=== PATIENT | female | born 1960 | race Caucasian/White ===

== ENCOUNTER 2023-10-28 20:51 | Inpatient (IN) | payer OTHER, SELFPAY ==
[2023-10-28] VITALS (16 sets, daily range): BP systolic 110–156; BP diastolic 61–114; BMI 38.5; BMI 38.8
[2023-10-28 15:06] LABS: % Basophils 0.8 % (0-2); % Eosinophils 1.8 % (0-6); % Immature Granulocytes 0.1 % (0-0.5); % Lymphocytes 29.1 % (20.5-51.1); % Monocytes 7.9 % (1.7-9.3); % Neutrophils 60.3 % (42.2-75.2); Absolute Basophils 0.1 10^3/uL (0-0.2); Absolute Eosinophils 0.2 10^3/uL (0-0.7); Absolute Lymphocytes 2.5 10^3/uL (1.2-3.4); Absolute Monocytes 0.7 10^3/uL (0.1-0.6); Absolute Neutrophils 5.2 10^3/uL (1.4-6.5); Hematocrit 38.1 % (37.0-47.0); Hemoglobin 13.2 g/dL (12.0-16.0); Mean Corp Hgb Conc. 34.6 g/dL (33.0-37.0); Mean Corpuscular Hgb 32.2 pg (27.0-31.0); Mean Corpuscular Volume 92.9 fL (81.0-99.0); Mean Platelet Volume 11.1 fL (7.4-10.4); Nucleated Red Blood Cells % 0 %; Platelet Count 258 10^3/uL (130-400); White Blood Cell Count 8.6 10^3/uL (4.8-10.8)
--- NOTE | 2023-10-28 15:17 | ED.GENMED ---
History of Present Illness
General
Chief Complaint: Chest Pain
Source: patient
Exam Limitations: none
Time Seen by Provider: 10/28/23 15:04
History of Present Illness
History of Present Illness:
See MDM
Past History
Past History
ED Past Medical History: None
ED Past Surgical History: None
Social History
Tobacco: Non-smoker
Alcohol: None
Phy Exam
Physical Exam
Physical Exam:
See MDM
Scores
[id number] Score for Afib Stroke Risk
Age in Years (65=0, 65-74=1, >/=75=2): <65
Sex (Female=+1): Female
Congestive Heart Failure History (Yes=+1): No
Hypertension History (Yes=+1): No
Stroke/TIA/Thromboembolism History (Yes=+2): No
Vascular Disease History (Yes=+1): No
Diabetes Mellitus (Yes=+1): No
Score: 1
Anticoagulation Recommendations: Consider anticoagulation (as validated in nonvalvular fib)
Heart Score for Chest Pain Patients
STEMI patient?: No
History: Slightly or Non-Suspicious
ECG: Normal
Age: >45 - <65 years
Risk Factors: 1 or 2 Risk Factors
Troponin: </= Normal Limit
Heart Score for Chest Pain Patients: 2
Heart Score Risk: 2.5% MACE over next 6 weeks
Course
Orders/Labs/Results
Orders:
Orders
10/28/23 14:20
ECG [Electrocardiogram (*1)] Urgent
Reason for Study: Chest Pain
EKG- Treatment ONCE
10/28/23 14:57
CMP [Comprehensive Metabolic Panel] Urgent
Complete Blood Count/With Diff Urgent
TSH Reflex To Free T4 Urgent
Troponin I Urgent
10/28/23 15:17
0.9% Sodium Chloride 1000 ml [Nss] 1,000 ml IV BOLUS
Diltiazem HCl [Cardizem] 20 mg IV NOW STA
10/28/23 16:23
Diltiazem 125 mg/125 ml Nss [Cardizem] 125 mg in 125 ml IV NOW
Initial dose in mg/hr, then titrate:: 5
Titrate to keep:: Heart rate 80-100 bpm
Titrate by mg/hr:: 5 mg/hr
Frequency of titrations (minutes):: 15
Maximum dose in mg/hr:: 15
Diltiazem HCl [Cardizem] 20 mg IV NOW STA
Abnormal Lab Results
10/28/23
14:57
RBC 4.10 L 10^6/uL
(4.20-5.40)
MCH 32.2 H pg
(27.0-31.0)
MPV 11.1 H fL
(7.4-10.4)
Absolute Monos (auto) 0.7 H 10^3/uL
(0.1-0.6)
Chloride 109 H mmol/L
(98-107)
Total Bilirubin 1.5 H mg/dl
(0.2-1.3)
ALT 56 H U/L
(0-35)
10/28/23 14:57
10/28/23 14:57
Vital Signs
Initial and Last Documented VS:
Initial Vital Signs
Temp Pulse Resp Pulse Ox
98.6 F 137 20 94
10/28/23 14:28 10/28/23 14:28 10/28/23 14:28 10/28/23 14:28
Last Documented Vital Signs
Temp Pulse Resp BP Pulse Ox
98.6 F 119 20 123/74 94
10/28/23 14:28 10/28/23 18:15 10/28/23 18:15 10/28/23 18:00 10/28/23 18:15
MDM/Problems Addressed
Differential Diagnosis Includes:
HPI and MDM Narrative:
63-year-old female presenting for shortness of breath for a few weeks. She went to her PCP office and was diagnosed with A-fib. Patient had a cardiology evaluation several years ago. She was told that she has an intermittent arrhythmia. Patient
is unsure if this was A-fib or not. Regardless, she takes no medicines and is not on blood thinners.
On exam, patient is in A-fib with RVR. At rest, she is comfortable but she complains of shortness of breath when she exerts herself. Will give Cardizem and discuss case with cardiology
Physical exam
General: Well appearing and non-toxic
HEENT: protecting airway
Neck: appears supple
CV: No evidence of cyanosis. Tachycardic and irregular
Resp: No accessory muscle use. Lungs clear
Abd: Non-distended
Extremities: No deformities
Neuro: alert
Psych: Normal affect
Skin: Intact
Problems Addressed including Acute and Chronic Conditions affecting care:
1. New onset A-fib
Acuity: acute
Prognosis: unstable
Details: Will give IV Cardizem and attempt to chemically cardiovert. Will give IV fluids and obtain basic blood work looking for lab abnormalities. She is not an electrical cardioversion candidate based on duration of symptoms while not being on a
blood thinner
Updates
After prolonged observation on Cardizem drip, patient remains in A-fib with RVR. Will admit for further workup
Differential Diagnosis (but not limited to): New onset A-fib, hyperthyroidism, ACS
Testing considered:
Drug therapy (if applicable): OTC meds, please see d/c instruction regarding Rx drugs
Amount and/or Complexity of Data Reviewed
Clinical info obtained from: Patient
External data reviewed: N/A
Labs I independently reviewed (but not limited to): White blood cell count normal
Radiology: N/A
Pulse Ox: not hypoxic
EKG independently reviewed: A-fib with RVR, normal axis, no STEMI
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
Critical Care: The high probability of a clinically significant, sudden or life threatening deterioration of the cardiovascular system(s) required my full and direct attention, intervention and personal management. The aggregate critical care time
was 31 minutes. This time is in addition to time spent performing reported procedures but includes the following:
[x] Data Review and interpretation
[x] Patient assessment and monitoring of vital signs
[x] Documentation
[x] Medication orders and management
Risk of Complication:
Social Determinants of health: Good social support
Discussed with other providers: Hospitalist
Escalation of Care includes Admit/Obs: Given persistent A-fib despite being on Cardizem drip, will admit
Occasional wrong word or 'sound a like' substitutions may have occurred due to the inherent limitations of voice recognition software. Read the chart carefully and recognize, using context, where substitutions have occurred.
*Critical Care Note
Total Time (30-74mins, 75-104mins- exclusive of procedures): 31 min
ED Attending Note
-
Portions of this chart may have been created with voice recognition software.� Occasional wrong word or��sound alike� substitutions may have occurred due to the inherent limitations of voice recognition software.
Discharge Plan
Departure
Patient Disposition: Admit
Date of Disposition: 10/28/23
Time of Disposition: 19:17
Admit to: Telemetry
Presentation/result/management discussed w/ accepting MD/DO: Hospitalist
Discharge Problem:
Atrial fibrillation, new onset
Prescriptions:
No Action
Theragen Tablet
1 tab PO DAILY
aspirin 81 mg Tablet,Delayed Release (Dr/Ec)
81 mg PO DAILY
zolmitriptan [Zomig] 5 mg Tablet
0 mg PO .COMPLEX
Rx Instructions:
take 1 tab at onset of headache; if no relief, may repeat 1 tab after at least 2 hrs; max = 2 tabs/24 hrs
calcium carbonate [Calcium 500] 500 mg calcium (1,250 mg) Tablet
500 mg PO DAILY
ibuprofen [Advil] 200 mg Tablet
200 mg PO Q6HPRN PRN (Reason: MILD PAIN)
coQ10 (ubiquinol) 100 mg Capsule
100 mg PO DAILY
CholestOff Complete 300-100 mg Capsule
1 cap PO DAILY
Referrals:
Neelima Hernandez CRNP [Family Provider] -
Interventions
Interventions:
*Risk Screen - Suicide Last Done: 10/28/23 14:41
*General Assessment Last Done: 10/28/23 14:41
*Neglect/Abuse Screening Last Done: 10/28/23 14:41
ED- Fall Risk Assessment Last Done: 10/28/23 14:41
*ED COVID-19 Vaccine History Last Done: 10/28/23 14:28
ED- Cardiac Assessment Last Done: 10/28/23 14:41
Discharge Date and Time
Print Language: SETSWANA
[2023-10-28 15:18] LABS: ALT (SGPT) 56 U/L (0-35); AST (SGOT) 35 U/L (14-36); Albumin 4.3 g/dl (3.5-5.0); Alkaline Phosphatase 87 U/L (38-126); Blood Urea Nitrogen 16 mg/dl (7-17); Carbon Dioxide 23 mmol/L (22-30); Chloride 109 mmol/L (98-107); Estimated Creatinine Clearance 118 ml/min; Glucose 93 mg/dl (70-99); Potassium 4.5 mmol/L (3.5-5.1); Sodium 140 mmol/L (135-145); Total Bilirubin 1.5 mg/dl (0.2-1.3); Total Protein 6.8 g/dl (6.3-8.2); eGFR > 60.00
[2023-10-28 15:30] LABS: Troponin I < 0.012 ng/ml
[2023-10-28] MEDS: NSS 1000 IV (15:47)
[2023-10-28 15:48] LABS: TSH Reflex To Free T4 2.07 uIU/ml (0.47-4.68)
[2023-10-28] MEDS: CARDIZEM 20 MG IV ×2 (15:48→16:49)
[2023-10-28] MEDS: CARDIZEM 125 IV (16:53)
--- NOTE | 2023-10-28 20:18 | HPS.HSE ---
Family Physician
-
Family Physician: SHAHRZAD Islas
Chief Complaint
-
Chest Tightness / SOB
History of Present Illness
Patient is a 63y F with PMH significant for obesity and borderline hypertension who presents to ED complaining of chest tightness and SOB. Patient states that her symptoms have been present for about one week and have been gradually progressive
in that time. She complains of dyspnea with activity that has steadily worsened over the past week (i.e. occurs with less and less exertion). She complains of chest 'tightness' and inability to take a deep breath. Her has appreciated some
wheezing in her sleep that seems to improve / resolve with upright positioning.
Patient notes some intermittent and brief palpitations.
She notes similar symptoms that occurred about one year ago. She was seen at [facility] ED at that time and discharged for outpatient follow-up.
She was seen by Cardiology (Dr. Irvin Potter) in [place], [place] and was noted at that time to have 'arrhythmia'.
She wore a Holter monitor that showed an arrhythmia which was not coincident with any reported symptoms from the patient.
Patient states that she was placed on no prescription medications; however, 'ablation' was discussed. Patient admits that she failed to follow-up after this initial evaluation.
Medical History
Past Medical History
Past Medical History: Reports Other
Additional Past Medical History:
Obesity
Migraine Headaches
Borderline Hypertension
Borderline Dyslipidemia
Past Surgical History: Reports Other
Additional Past Surgical History:
DANNI
Social History
Tobacco: Non-smoker
Alcohol: Occasional
Drug: None
Personal:
Family History
Family History: Other (Father: [place] (58yo), CVA)
Allergies / Home Medications
Allergies reflects when Allergies were last updated in [facility].
Home Medications with original date entered in [facility]
Allergy/Medication List:
Allergies
Allergy/AdvReac Type Severity Reaction Status Date / Time
No Known Allergies Allergy Verified 10/28/23 14:32
Home Medications
aspirin 81 mg tablet,delayed release 81 mg PO DAILY 10/28/23
calcium carbonate 500 mg PO DAILY 10/28/23
coQ10 (ubiquinol) 100 mg capsule 100 mg PO DAILY 10/28/23
ibuprofen 200 mg tablet (Advil) 200 mg PO Q6HPRN PRN MILD PAIN 10/28/23
phytosterol 300 mg-pantethine 100 mg capsule (CholestOff Complete) 1 cap PO DAILY 10/28/23
therapeutic multivitamin 1 tab PO DAILY 10/28/23
zolmitriptan 5 mg tablet (Zomig) 0 mg PO .COMPLEX 10/28/23
Review of Systems
-
History Source: Patient
A 12 point ROS was completed and negative except as noted: Yes
Constitutional: Reports Fatigue; Denies Fever or Chills
EENT: Denies Sore Throat
Respiratory: Reports Trouble Breathing; Denies Cough or Hemoptysis
Cardiac: Reports Chest Pain; Denies Diaphoresis, Palpitations or Syncope
Abdomen/GI: Denies Abdominal Pain, Nausea, Vomiting or Diarrhea
: Denies Dysuria, Frequency or Flank Pain
Musculoskeletal: Denies Edema
Neurological: Reports Headache; Denies Dizzy
Psych: Denies Depression or Anxiety
Physical Exam
Vital Signs
Vital Signs
Temp Pulse Resp BP Pulse Ox
98.6 F 112 17 119/88 93
10/28/23 14:28 10/28/23 19:15 10/28/23 19:15 10/28/23 19:00 10/28/23 19:15
Physical Exam
General: Other (63y F in no acute distress.)
HEENT: Moist mucous membranes and Other (Thick neck.)
Respiratory: Other (Few bibasilar rales. No wheeze / rhonchi.)
Cardiac: S1/S2, Irregular Rhythm and Tachycardia; No Murmur
GI: Soft, Non Tender, Non Distended, Normal Bowel Sounds and Other (Obese.)
Musculoskeletal: No Clubbing, No Cyanosis and No Edema
Neuro: AO x 3
Laboratory Results
-
10/28/23 14:57
10/28/23 14:57
Laboratory Results
Total Bilirubin 1.5 mg/dl (0.2-1.3) H 10/28/23 14:57
AST 35 U/L (14-36) 10/28/23 14:57
ALT 56 U/L (0-35) H 10/28/23 14:57
Alkaline Phosphatase 87 U/L (38-126) 10/28/23 14:57
Troponin I < 0.012 ng/ml 10/28/23 14:57
Impression/Plan
-
A/P: Patient is a 63y F with PMH significant for obesity and migraine headaches who presents to ED complaining of chest tightness and GEORGE.
Atrial Fibrillation - Likely Paroxysmal - with Rapid Ventricular Rate
- Admit for further evaluation and treatment.
- Suspect that patient has had atrial fibrillation for at least on year.
- Will send for records from her prior outpatient Italian Tutor.
- Continue IV diltiazem and titrate as needed for rate control.
- Begin Eliquis for stroke risk reduction (though CHADs-VAsc2 is only 1).
- Check Echo.
- Cardiology evaluation in the AM to review other options for treatment.
Obesity due to excess calories
- Affects all aspects of care.
- Encourage health diet and increased activity with goal of weight loss.
DVT Prophylaxis: Eliquis
Code Status: Full
[2023-10-28 22:53] LABS: Troponin I < 0.012 ng/ml
[2023-10-28] MEDS: ELIQUIS 5 MG PO (23:11)
[2023-10-29] VITALS (11 sets, daily range): BP systolic 92–127; BP diastolic 57–91; BMI 38.8
--- NOTE | 2023-10-29 00:32 | PTCARENOTE ---
Received patient from ED. Admitted with SOB and chest tightness. Cardizem drip at 15ml/hr running in left forearm. Telemetry A-Fib with RVR. Rates 120s-140s. Denies chest discomfort. Admission history taken and recorded. Call corbin within reach.
[2023-10-29] MEDS: CARDIZEM 125 IV (04:29)
[2023-10-29] MEDS: TYLENOL 650 MG PO ×2 (04:56→10:01)
--- NOTE | 2023-10-29 05:19 | PTCARENOTE ---
Patient continues in uncontrolled A-Fib. HR remains 110 at rest. Cardizem drip continues at 15mL/hr. Call corbin within reach.
[2023-10-29 05:27] LABS: Hematocrit 36.7 % (37.0-47.0); Hemoglobin 12.8 g/dL (12.0-16.0); Mean Corp Hgb Conc. 34.9 g/dL (33.0-37.0); Mean Corpuscular Hgb 32.3 pg (27.0-31.0); Mean Corpuscular Volume 92.7 fL (81.0-99.0); Mean Platelet Volume 11.6 fL (7.4-10.4); Platelet Count 246 10^3/uL (130-400); Red Blood Cell Count 3.96 10^6/uL (4.20-5.40); Red Cell Dist. Width 13.2 % (11.5-14.5); White Blood Cell Count 8.8 10^3/uL (4.8-10.8)
[2023-10-29 05:49] LABS: Blood Urea Nitrogen 14 mg/dl (7-17); Calcium 9.4 mg/dl (8.4-10.2); Carbon Dioxide 23 mmol/L (22-30); Chloride 108 mmol/L (98-107); Estimated Creatinine Clearance 116 ml/min; Glucose 91 mg/dl (70-99); HDL Cholesterol 42 mg/dl; LDL Cholesterol, Calculated 132 mg/dl; Sodium 139 mmol/L (135-145); Total Cholesterol 196 mg/dl (50-199); Triglyceride 114 mg/dl (10-149); Very Low Density Lipoprotein 22 mg/dl (0-30); eGFR > 60.00
[2023-10-29 06:00] LABS: Troponin I < 0.012 ng/ml
--- NOTE | 2023-10-29 08:03 | W.PN.HOSP.TC ---
Today's Communication/Plan
-
Lopressor and wean off Cardizem, chest XR
Assessment / Plan
Assessment / Plan
63yo F with PMHx of migraine came witbhn c/o of chronic worsening of SOB over past year. Was diagnosed with A.fib, apparently known from before. Admitted for Afib with RVR planned for CV
A/P:
#Dyspnea 2/2 most likely unspecified CHF 2/2 AFIb now with RVR (unknown duration)
Cardizem drip and switch to BB as tolerated
Echo
Telemetry
TSH WNL
Cardio consult: plan for FROY with CV
Chest XR
Started ELiquis
#Mild bilirubinemia
#Mild ALT elevation
no abd symptoms
follow LFT
check direct bili and LDH
#HLD
low fat diet
consider statin, however would defer to PCP in view of minimal but LFT abnormalities
DVT ppx on Eliquis
Full code
I have spent at least 56min reviewing chart, test results, communication with consuoltants and direct patient care
Anticipated Discharge: > 48 hours
Subjective/Interval History
-
Date of Service: October 29, 2023
Objective Data
-
Labs:
Laboratory Results
10/29/23
04:52
WBC 8.8
Hgb 12.8
Hct 36.7 L
Plt Count 246
Sodium 139
Potassium 4.0
Chloride 108 H
Carbon Dioxide 23
BUN 14
Creatinine 0.7
Glucose 91
Calcium 9.4
Vital Signs:
Vital Signs
Temp Pulse Resp BP Pulse Ox
97.8 F 132 18 121/66 94
10/29/23 07:15 10/29/23 07:15 10/29/23 07:15 10/29/23 07:14 10/29/23 07:15
Review of Systems
-
History Source: Patient
Respiratory: Reports Trouble Breathing
Physical Exam
-
General: Well Developed and No Apparent Distress
HEENT: Normocephalic
Respiratory: Crackles
Cardiac: Irregular Rhythm; Negative Murmur
GI: Soft, Nontender and Nondistended
Musculoskeletal: No Clubbing, No Cyanosis and No Edema
Skin: Warm
Neuro: Awake, Alert, Oriented and AO x 3
Psych: Calm
--- NOTE | 2023-10-29 08:10 | CON.CAR ---
Addendum entered and electronically signed by Scottie Neville MD 10/29/23 08:25:
Also sleep study has been considered in the past and she does snore. Sleep apnea is highly associated with A-fib and may consider outpatient sleep study
Addendum entered and electronically signed by Scottie Neville MD 10/29/23 08:24:
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 Patient had echocardiogram and stress test by her report in September 2022. If chest x-ray unremarkable consider CAT scan of chest to exclude pulmonary embolism with recent long
car trip.
Original Note:
Consultation
Consultation Request
Date/Time Consultation Requested: 10/28/2023 22: 00
Date/Time Consultation Performed: 10/29/2023 7: 45
Requesting Provider: Riky
Performing Provider: Kelin
Reason for Consultation: Atrial fibrillation
Medical History
-
Chief Complaint: Chest pains and shortness of breath
History of Present Illness:
Radha has a history of atrial fibrillation and was not anticoagulated due to low CHADS2 score, hypercholesterolemia, elevated blood pressure. She saw cardiology in September 2022 in [place], [place] (Dr. Irvin Potter). She reports a normal
stress test and echocardiogram at that time. She is active around the house but does not exercise. She had taken a road trip to [place] in early October. She has had developed chest tightness and shortness of breath for the past 1 to 2 weeks.
She has had a nonproductive cough. She broke out in sweats at times and is very short of breath with any type of exertion. She also has been noted to have a wheeze by her partner. She denies any palpitations, edema, weight gain. She was seen by
primary found to be in A-fib and sent to the ER and is in bed.
Past Medical History
Past Medical History: Other (History of migraines, anxiety, lipomas)
Past Surgical History: Gynecological (Total abdominal hysterectomy)
Social History
Tobacco: Non-Smoker
Alcohol: Occasional
Drug: None
Personal:
Living: With Family
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
Family History
Family History: Other (Father had heart attack at age 58, mother has some type of elevated heart rate and is 77)
Allergies / Home Medications
Allergy/AdvReac Type Severity Reaction Status Date / Time
No Known Allergies Allergy Verified 10/28/23 14:32
�Medication �Instructions �Recorded �Confirmed �Type
alprazolam 0.25 mg PO PRN Anxiety 10/28/23 History
aspirin 81 mg tablet,delayed 81 mg PO DAILY 10/28/23 10/28/23 History
release
calcium carbonate 500 mg PO DAILY 10/28/23 10/28/23 History
coQ10 (ubiquinol) 100 mg capsule 100 mg PO DAILY 10/28/23 10/28/23 History
ibuprofen 200 mg tablet (Advil) 200 mg PO Q6HPRN PRN MILD PAIN 10/28/23 10/28/23 History
phytosterol 300 mg-pantethine 100 1 cap PO DAILY 10/28/23 10/28/23 History
mg capsule (CholestOff Complete)
therapeutic multivitamin 1 tab PO DAILY 10/28/23 10/28/23 History
zolmitriptan 5 mg tablet (Zomig) 0 mg PO .COMPLEX 10/28/23 10/28/23 History
Review of Systems
-
History Source: Patient
All other systems: Negative unless noted
Constitutional: No Symptoms
EENT: No Symptoms
Respiratory: Cough and Trouble Breathing
Cardiac: Chest Pain
Abdomen/GI: No Symptoms
: No Symptoms
Musculoskeletal: No Symptoms
Skin: No Symptoms
Neurological: No Symptoms
Endocrine: No Symptoms
Hematologic/Lymphatic: No Symptoms
Physical Exam
Vital Signs
Temp Pulse Resp BP Pulse Ox
97.8 F 132 18 121/66 94
10/29/23 07:15 10/29/23 07:15 10/29/23 07:15 10/29/23 07:14 10/29/23 07:15
Lab Results
10/29/23 04:52
10/29/23 04:52
Troponin I Cancelled 10/29/23 09:41
General: Well developed, well nourished in NAD.
Neck: Supple, no JVD, HJR, carotids +2 B/L, no bruits bilaterally.
Heart: Non displaced PMI, irregular, no murmurs, No S3, S4, no rubs.
Lungs: Scattered rhonchi at the bases
Abdomen: Normal bowel sounds, soft, non-tender, non-distended.
Extremities: No clubbing, cyanosis or edema bilaterally.
Neuro: Grossly nonfocal, awake, alert and oriented x3.
Impression / Plan
-
Impression:
CHF
Chest pain with negative troponin
Rapid atrial fibrillation with history of A-fib since September 2022 and not anticoagulated due to low CHADS2 score
Hypercholesterolemia
History of elevated blood pressure
History of migraines
Anxiety disorder
Plan:
She presents with rapid A-fib and signs and symptoms of CHF with nonproductive cough and wheezing and crackles on examination
Will check chest x-ray and proBNP
Will diurese with IV Lasix
Continue to attempt rate control with the addition of Lopressor and continue Cardizem
Start Eliquis and case management consult to assess cost
Arrange for FROY/cardioversion on 10/31/2023
Discussed with primary service in detail
Data Reviewed
-
EKG: Tracing Personally Visualized and interpreted
Medical Tests (Nuc Med, Echo etc): Report Reviewed by me
Labs: Labs Reviewed by me
Old Records: Reviewed
[2023-10-29] MEDS: ASPIR LOW (ENTERIC COATED) 81 MG PO (08:23)
[2023-10-29] MEDS: ELIQUIS 5 MG PO ×2 (08:26→19:42)
[2023-10-29] MEDS: LOPRESSOR 50 MG PO ×2 (08:26→19:42)
[2023-10-29 08:49] LABS: Direct Bilirubin 0.2 mg/dl (0.0-0.4); LDH 199 U/L (120-246)
[2023-10-29] MEDS: LASIX 40 MG IV ×2 (09:18→15:40)
--- NOTE | 2023-10-29 18:31 | PTCARENOTE ---
Pt remains in atrial fib at a rate @90-140 with activity. Diltiazem infusion DC'd for SBP low 90's, pt started on metoprolol. Pt c/o mild headache relieved with tylenol. Pt had a peripheral U/S, CT scan of chest and CXR done today. Pt diuresing well
after lasix, she denies SOB.
--- NOTE | 2023-10-29 21:39 | PTCARENOTE ---
Pt received start of shift, HR afib. Pt OOB in chair for dinner. Reinforced w/ pt purpose of eliquis and metoprolol as well as what is afib. Pt states understanding, no questions at this time. Pt denies any CP, SOB, or lightheadedness/dizziness.
Informed to notify RN if any changes, call corbin within reach.
[2023-10-30] VITALS (8 sets, daily range): BP systolic 100–127; BP diastolic 64–89; BMI 38.5
[2023-10-30 02:33] LABS: % Basophils 0.8 % (0-2); % Eosinophils 2.8 % (0-6); % Immature Granulocytes 0.1 % (0-0.5); % Lymphocytes 34.9 % (20.5-51.1); % Monocytes 8.5 % (1.7-9.3); % Neutrophils 52.9 % (42.2-75.2); Absolute Basophils 0.1 10^3/uL (0-0.2); Absolute Eosinophils 0.2 10^3/uL (0-0.7); Absolute Lymphocytes 2.8 10^3/uL (1.2-3.4); Absolute Monocytes 0.7 10^3/uL (0.1-0.6); Absolute Neutrophils 4.2 10^3/uL (1.4-6.5); Hematocrit 36.7 % (37.0-47.0); Mean Corp Hgb Conc. 35.4 g/dL (33.0-37.0); Mean Corpuscular Hgb 32.7 pg (27.0-31.0); Mean Corpuscular Volume 92.4 fL (81.0-99.0); Mean Platelet Volume 11.3 fL (7.4-10.4); Nucleated Red Blood Cells % 0 %; Platelet Count 230 10^3/uL (130-400); Red Blood Cell Count 3.97 10^6/uL (4.20-5.40); Red Cell Dist. Width 13.2 % (11.5-14.5); White Blood Cell Count 7.9 10^3/uL (4.8-10.8)
[2023-10-30 02:48] LABS: ALT (SGPT) 68 U/L (0-35); AST (SGOT) 35 U/L (14-36); Albumin 3.8 g/dl (3.5-5.0); Alkaline Phosphatase 77 U/L (38-126); Blood Urea Nitrogen 17 mg/dl (7-17); Calcium 9.3 mg/dl (8.4-10.2); Carbon Dioxide 28 mmol/L (22-30); Chloride 107 mmol/L (98-107); Estimated Creatinine Clearance 101 ml/min; Glucose 94 mg/dl (70-99); Potassium 4.1 mmol/L (3.5-5.1); Sodium 140 mmol/L (135-145); Total Bilirubin 0.8 mg/dl (0.2-1.3); Total Protein 6.2 g/dl (6.3-8.2); eGFR > 60.00
[2023-10-30 02:56] LABS: NT-proBNP 513 pg/ml
[2023-10-30] MEDS: LOPRESSOR 50 MG PO (06:14)
--- NOTE | 2023-10-30 06:21 | PTCARENOTE ---
Pt HR slowly rising back up 120s-140s resting. 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
--- NOTE | 2023-10-30 07:21 | W.PN.HOSP.TC ---
Today's Communication/Plan
-
Lasix placed on hold - no significant fluid overload
Lopressor increased
pedning CV
Assessment / Plan
Assessment / Plan
63yo F with PMHx of migraine came witbhn c/o of chronic worsening of SOB over past year. Was diagnosed with A.fib, apparently known from before. Admitted for Afib with RVR planned for TTE with CV
A/P:
#Dyspnea 2/2 AFIb with RVR (unknown duration)
#CHF, unspecified, unclear if acute
Cardizem drip and switch to BB as tolerated
Echo pending
Telemetry
TSH WNL
Cardio consult: plan for FROY with CV
Chest XR without significant signs of CHF. R basilar atelectasis confirmed on CT
VTE ruled out
Started Eliquis
proBNP low with no signs of fluid overload on imaging - Lasix held
#Mild indirect bilirubinemia
#Mild ALT elevation
no abd symptoms
follow LFT
LDH WNL
Outpatient follow up with PCP
Hepatitis profile
#HLD
low fat diet
consider statin, however would defer to PCP in view of minimal but LFT abnormalities
DVT ppx on Eliquis
Full code
I have spent at least 36min reviewing chart, test results, communication with consultants and direct patient care
Anticipated Discharge: 24 - 48 hours
Subjective/Interval History
-
Date of Service: October 30, 2023
Objective Data
-
Labs:
Laboratory Results
10/30/23
02:13
WBC 7.9
Hgb 13.0
Hct 36.7 L
Plt Count 230
Sodium 140
Potassium 4.1
Chloride 107
Carbon Dioxide 28
BUN 17
Creatinine 0.8
Glucose 94
Calcium 9.3
Total Bilirubin 0.8
AST 35
ALT 68 H
Alkaline Phosphatase 77
Vital Signs:
Vital Signs
Temp Pulse Resp BP Pulse Ox
98.1 F 137 18 125/84 96
10/30/23 02:06 10/30/23 06:14 10/30/23 02:06 10/30/23 06:14 10/30/23 02:06
I&O
10/29/23 10/30/23 10/31/23
06:59 06:59 06:59
Intake Total 895 / 895
Output Total 3450 / 3450
Balance -2555 / -2555
Review of Systems
-
History Source: Patient
All other systems: Reviewed and negative
Physical Exam
-
General: No Apparent Distress
HEENT: Normocephalic and Atraumatic
Respiratory: Clear to Auscultation
Cardiac: Irregular Rhythm and Tachycardic
GI: Soft, Nontender and Nondistended
Neuro: Awake, Oriented and AO x 3
Data Reviewed
-
Labs: Labs Reviewed by me
[2023-10-30] MEDS: ASPIR LOW (ENTERIC COATED) 81 MG PO (07:56)
[2023-10-30] MEDS: ELIQUIS 5 MG PO ×2 (07:56→19:41)
[2023-10-30] MEDS: ANESTHETIC LOZENGE 1 LOZENGE PO (08:50)
[2023-10-30 09:09] LABS: COVID-19 Antigen Negative (Negative)
--- NOTE | 2023-10-30 17:13 | W.PN.CARDCBS ---
Today's Communication / Plan
-
Increase beta-aurora
Monitor on telemetry
FROY/DCCV 10/31/2023, n.p.o. after midnight
Impression / Plan
-
Impression:
CHF, improved
Chest pain with negative troponin
Rapid atrial fibrillation with history of A-fib since September 2022 and not anticoagulated due to low CHADS2 score
Hypercholesterolemia
History of elevated blood pressure
History of migraines
Anxiety disorder
Plan:
She presents with rapid A-fib and signs and symptoms of CHF with nonproductive cough and wheezing and crackles on examination
Will check chest x-ray and proBNP (low) --> CT chest no PE, trace pleural effusion
Gentle IV diuresis now on hold
Continue to attempt rate control with the addition of Lopressor and continue Cardizem
Continue Eliquis and case management consult to assess cost
Arrange for FROY/cardioversion on 10/31/2023
Discussed with primary service in detail
Progress Note - Conveyor Feeder Offbearer
Subjective
Date of Service: October 30, 2023
Patient seen and examined. No acute events overnight. Patient remains A-fib RVR on telemetry. Resting comfortably in chair. Denies chest pain, shortness of breath, palpitations, lightheadedness, dizziness, near-syncope, syncope, or weakness.
Does note rare breathlessness with activity or exertion but not significant.
Objective
Labs:
10/30/23 02:13
10/30/23 02:13
Labs
Hgb 13.0 g/dL (12.0-16.0) 10/30/23 02:13
Hct 36.7 % (37.0-47.0) L 10/30/23 02:13
Plt Count 230 10^3/uL (130-400) 10/30/23 02:13
Sodium 140 mmol/L (135-145) 10/30/23 02:13
Potassium 4.1 mmol/L (3.5-5.1) 10/30/23 02:13
BUN 17 mg/dl (7-17) 10/30/23 02:13
Creatinine 0.8 mg/dL (0.6-1.0) 10/30/23 02:13
Glucose 94 mg/dl (70-99) 10/30/23 02:13
Troponins
10/28/23 10/28/23 10/29/23
14:57 22:16 04:52
Troponin I < 0.012 < 0.012 < 0.012
10/29/23
09:41
Troponin I Cancelled
Vital Signs and I&O:
Vital Signs
Temp Pulse Resp BP Pulse Ox
98.7 F 129 20 100/85 96
10/30/23 15:25 10/30/23 15:19 10/30/23 15:25 10/30/23 15:19 10/30/23 15:25
Vital Signs
Temp Pulse Resp BP Pulse Ox
98.7 F 129 20 100/85 96
10/30/23 15:25 10/30/23 15:19 10/30/23 15:25 10/30/23 15:19 10/30/23 15:25
Intake & Output
10/28/23 10/29/23 10/30/23 10/31/23
06:59 06:59 06:59 06:59
Intake Total 895 / 895 240 / 240
Output Total 3450 / 3450 900 / 900
Balance -2555 / -2555 -660 / -660
Physical Exam
Physical Exam
General: Well developed, well nourished in NAD, obese
Neck: Supple, no JVD, HJR, carotids +2 B/L, no bruits bilaterally.
Heart: Non displaced PMI, irregular, no murmurs, No S3, S4, no rubs.
Lungs: CTA BL, no wheeze, rhonchi or rales
Abdomen: Normal bowel sounds, soft, non-tender, non-distended.
Extremities: No clubbing, cyanosis or edema bilaterally.
Neuro: Grossly nonfocal, awake, alert and oriented x3.
--- NOTE | 2023-10-30 18:40 | PTCARENOTE ---
Pt OOB to chair all day. Pt c/o sore throat which improved after benzocaine lozenge, covid test negative. She remains in uncontrolled atrial fib at a rate of 110-150's with activity, pt states no issues with high heart rates. Plan to increase toprol
tonight. Pt NPO for FROY/CV on 10/30.
[2023-10-30] MEDS: LOPRESSOR 100 MG PO (19:41)
--- NOTE | 2023-10-30 23:27 | PTCARENOTE ---
No complaints of pain or discomfort when questioned earlier. Aware she is NPO after mdn. Remains in A-Fib in the 110-120's.
[2023-10-31] VITALS (9 sets, daily range): BP systolic 94–125; BP diastolic 42–88; BMI 38.5
[2023-10-31 05:00] LABS: % Basophils 0.8 % (0-2); % Eosinophils 2.3 % (0-6); % Immature Granulocytes 0.3 % (0-0.5); % Lymphocytes 34.6 % (20.5-51.1); % Monocytes 7.9 % (1.7-9.3); % Neutrophils 54.1 % (42.2-75.2); Absolute Basophils 0.1 10^3/uL (0-0.2); Absolute Eosinophils 0.2 10^3/uL (0-0.7); Absolute Lymphocytes 3.5 10^3/uL (1.2-3.4); Absolute Monocytes 0.8 10^3/uL (0.1-0.6); Absolute Neutrophils 5.5 10^3/uL (1.4-6.5); Hematocrit 38.3 % (37.0-47.0); Hemoglobin 13.2 g/dL (12.0-16.0); Mean Corp Hgb Conc. 34.5 g/dL (33.0-37.0); Mean Corpuscular Hgb 32.2 pg (27.0-31.0); Mean Corpuscular Volume 93.4 fL (81.0-99.0); Mean Platelet Volume 10.8 fL (7.4-10.4); Nucleated Red Blood Cells % 0 %; Platelet Count 244 10^3/uL (130-400); White Blood Cell Count 10.1 10^3/uL (4.8-10.8)
[2023-10-31 05:22] LABS: ALT (SGPT) 56 U/L (0-35); AST (SGOT) 30 U/L (14-36); Albumin 3.7 g/dl (3.5-5.0); Alkaline Phosphatase 73 U/L (38-126); Blood Urea Nitrogen 21 mg/dl (7-17); Calcium 9.6 mg/dl (8.4-10.2); Carbon Dioxide 23 mmol/L (22-30); Chloride 111 mmol/L (98-107); Estimated Creatinine Clearance 101 ml/min; Glucose 96 mg/dl (70-99); Potassium 4.6 mmol/L (3.5-5.1); Sodium 140 mmol/L (135-145); Total Bilirubin 1.1 mg/dl (0.2-1.3); Total Protein 6.1 g/dl (6.3-8.2); eGFR > 60.00
--- NOTE | 2023-10-31 07:51 | W.PN.HOSP.TC ---
Today's Communication/Plan
-
Amiodarone
Repeat cardioversion in 48 to 72 hours
Appreciate cardiology
Assessment / Plan
Assessment / Plan
Physical Exam
Physical Exam was not performed as patient was not present in her room at the time of attempted patient encounter.

63yo F with PMHx of migraine came witbhn c/o of chronic worsening of SOB over past year. Was diagnosed with A.fib, apparently known from before. Admitted for Afib with RVR planned for TTE with CV
A/P:
#Dyspnea 2/2 AFIb with RVR (unknown duration)
#CHF, unspecified, unclear if acute
#Idioventricular Escape Rhythm
Cardizem drip and switch to BB as tolerated
Echo pending
Telemetry
TSH WNL
Cardio consult: FROY with CV but patient had recurrence of A-Fib shortly after cardioversion
Start Amiodarone and pursue repeat cardioversion
Patient ultimately is best suited for pulmonary vein isolation.
Chest XR without significant signs of CHF. R basilar atelectasis confirmed on CT
VTE ruled out
Started Eliquis
proBNP low with no signs of fluid overload on imaging - Lasix held
Will need outpatient sleep study
Follow-up with PCP with consideration for a GLP-1 agonist
#Mild indirect bilirubinemia
#Mild ALT elevation
no abd symptoms
follow LFT
LDH WNL
Outpatient follow up with PCP
Hepatitis profile
#HLD
low fat diet
consider statin, however would defer to PCP in view of minimal but LFT abnormalities
DVT ppx on Eliquis
Full code
Anticipated Discharge: > 48 hours
Subjective/Interval History
-
Date of Service: October 31, 2023
Patient was not present in her room at the time of attempted patient encounter. Chart reviewed.
Objective Data
-
Labs:
Laboratory Results
10/31/23
04:50
WBC 10.1
Hgb 13.2
Hct 38.3
Plt Count 244
Sodium 140
Potassium 4.6
Chloride 111 H
Carbon Dioxide 23
BUN 21 H
Creatinine 0.8
Glucose 96
Calcium 9.6
Total Bilirubin 1.1
AST 30
ALT 56 H
Alkaline Phosphatase 73
Vital Signs:
Vital Signs
Temp Pulse Resp BP Pulse Ox
97.7 F 138 20 102/78 93
10/31/23 06:46 10/31/23 07:00 10/31/23 06:46 10/31/23 06:50 10/31/23 06:50
I&O
10/30/23 10/31/23 11/01/23
06:59 06:59 06:59
Intake Total 895 / 895 240 / 240
Output Total 3450 / 3450 900 / 900
Balance -2555 / -2555 -660 / -660
[2023-10-31] MEDS: ASPIR LOW (ENTERIC COATED) 81 MG PO (08:00)
[2023-10-31] MEDS: LOPRESSOR 100 MG PO ×2 (08:00→19:56)
[2023-10-31] MEDS: ELIQUIS 5 MG PO ×2 (08:00→19:56)
--- NOTE | 2023-10-31 09:08 | PTCARENOTE ---
Pt left for FROY/CV. Has been NPO since MN. AOx3, no complaints of pain or discomfort. VSS, Afib on tele monitor. Family member at bedside and updated on plan.
--- NOTE | 2023-10-31 09:26 | W.PN.CARDCBS ---
Addendum entered and electronically signed by Aníbal Perales MD 10/31/23 11:46:
Patient's status post cardioversion, was transiently in an idioventricular escape rhythm with retrograde P wave conduction prior to resumption of A-fib after 10 to 15 seconds. Patient offers no complaints.
PMH/PSH/SH/FH: Reviewed
Allergies: None
Outpatient medications: Alprazolam, aspirin 81 mg a day
Current medications: Aspirin 81 mg a day, Apixaban 5 mg twice daily, furosemide 40 mg IV twice daily metoprolol ER 100 mg twice daily
ROS: Negative except as above
102/78, pulse 127, respiratory 20, afebrile, sats 93%, weight is 118.3 kg was 120 kg on admission, intake and output likely incomplete
at bedside, no complaints, head neck exam unremarkable, irregular rate and rhythm, no murmurs, abdomen benign extremities without clubbing cyanosis or edema neuro nonfocal
EKG atrial fib rapid ventricular response nonspecific ST and T wave changes
CTA chest negative for pulmonary embolus, leg vein ultrasound negative for DVT
Small patchy right basilar infiltrate
Hemoglobin 13.2 white count 10.1
BUN and creatinine 21 and 0.8, proBNP was 513, troponin was undetectable
Plan:
Unfortunately she had recurrence of atrial fibrillation within seconds of cardioversion. She had an idioventricular escape rhythm.
At this point, it is unlikely we can achieve satisfactory rate control given hypotension. Ultimately she is best suited to pulmonary vein isolation.
Therefore, best strategy will be druze of sinus rhythm using amiodarone and repeat cardioversion. If successful we will proceed in the short-term with evaluation for PVI.
Discussed with patient and patient's . They are in agreement. Add amiodarone 400 mg 3 times daily. Repeat cardioversion in 48 to 72 hours.
She likely has sleep apnea based on body habitus though she does not have daytime fatigue to an extensive degree. Would favor outpatient home sleep study.
Importance of weight loss stressed. Amita Schultz is her primary care provider. Patient should probably receive a GLP-1 agonist. Consider referral to [facility].
Probably will discharge on a low-dose of a diuretic, though in sinus rhythm it is unclear that she will have HFpEF. At this point I will not start SGLT2 antagonists. Will not necessarily start spironolactone.
If she looks well, could probably be discharged later today after cardioversion.
Original Note:
Today's Communication / Plan
-
Await outcome of FROY/CV and then possibly d/c to home
Might need PO diuretic at d/c
Impression / Plan
-
PCP: Neelima Hernandez
Cardiology: Primary ostrich farm worker in [place]
Impression:
Acute HF unknown EF
Afib with RVR on admission
Paroxysmal Afib since September 2022
Not on OAC due to low CHADS Vasc score and patient choice
Hypercholesterolemia
History of elevated blood pressure
History of migraines
Anxiety disorder
Plan:
-I called patient's primary ostrich farm worker's office 10/31/23 to get records of last stress test and echo, they are faxing them over.
-Patient wore a Holter monitor 2022 and had Afib, atrial flutter and atrial tachycardia, but patient elected to make no changes in meds at that time. She also declined EP eval at that time.
-Patient was not taking OAC prior to admission because her CHADS score was 'low' and that was her choice. Patient was not aware of Afib in the ER on admission and her main symptom was SOB.
-Patient was started on Eliquis 5 mg BID this admission. She has commercial insurance and can use the Eliquis co-pay card.
-Patient needs an outpatient JOSE A eval.
-Plan is for FROY/CV 10/31/23
-Weight is down 2-4 lbs from admission with Lasix 40 mg IV BID. Patient was not taking a diuretic prior to admission.
-Small right and trace left pleural effusions by CT chest 10/29/23
-Possible d/c to home 10/31/23
Progress Note - Welding Machine Tender
Subjective
Date of Service: October 31, 2023
No palpitations
Objective
Labs:
10/31/23 04:50
10/31/23 04:50
Labs
Hgb 13.2 g/dL (12.0-16.0) 10/31/23 04:50
Hct 38.3 % (37.0-47.0) 10/31/23 04:50
Plt Count 244 10^3/uL (130-400) 10/31/23 04:50
Sodium 140 mmol/L (135-145) 10/31/23 04:50
Potassium 4.6 mmol/L (3.5-5.1) 10/31/23 04:50
BUN 21 mg/dl (7-17) H 10/31/23 04:50
Creatinine 0.8 mg/dL (0.6-1.0) 10/31/23 04:50
Glucose 96 mg/dl (70-99) 10/31/23 04:50
Troponins
10/28/23 10/28/23 10/29/23
14:57 22:16 04:52
Troponin I < 0.012 < 0.012 < 0.012
10/29/23
09:41
Troponin I Cancelled
Vital Signs and I&O:
Vital Signs
Temp Pulse Resp BP Pulse Ox
97.7 F 126 20 102/78 93
10/31/23 06:46 10/31/23 08:00 10/31/23 06:46 10/31/23 08:00 10/31/23 06:50
Vital Signs
Temp Pulse Resp BP Pulse Ox
97.7 F 126 20 102/78 93
10/31/23 06:46 10/31/23 08:00 10/31/23 06:46 10/31/23 08:00 10/31/23 06:50
Intake & Output
10/29/23 10/30/23 10/31/23 11/01/23
06:59 06:59 06:59 06:59
Intake Total 895 / 895 240 / 240
Output Total 3450 / 3450 900 / 900
Balance -2555 / -2555 -660 / -660
Physical Exam
Physical Exam
GEN: AAOx3
HEENT: mmm
LUNGS: No audible wheeze
CV: SR on tele
ABD: ND
EXT: No edema
NEURO: Gross non-focal
SKIN: No rash
--- NOTE | 2023-10-31 10:27 | CM ---
priceyo bueno at [facility], her copay is $30/month and it is in stock
--- NOTE | 2023-10-31 11:05 | PTCARENOTE ---
Pt returned from FROY/CV procedure. VSS, Afib on tele monitor. Family at bedside. Call corbin within reach.
--- NOTE | 2023-10-31 11:51 | CM ---
spoke to pt in room, she is prev indep, lives with her in a spllit level home with 2 steps to enter. she denies any dc planning needs or dme's.
[2023-10-31] MEDS: PACERONE 400 MG PO ×2 (13:59→21:34)
[2023-10-31 20:41] LABS: Hepatitis B Surface Antigen Negative (Negative)
[2023-10-31 21:00] LABS: Hepatitis B Core Ab, Total Negative (Negative); Hepatitis B Surface Antibody Negative; Hepatitis C Antibody Negative (Negative)
[2023-11-01 03:37] VITALS: BP 104/84
--- NOTE | 2023-11-01 03:56 | PTCARENOTE ---
Pt in AFib Hr 110-130, denies pain or discomfort. EKG and morning labs obtained
[2023-11-01 04:00] VITALS: BMI 38.6
[2023-11-01 04:14] LABS: % Basophils 0.7 % (0-2); % Immature Granulocytes 0.3 % (0-0.5); % Lymphocytes 28.4 % (20.5-51.1); % Monocytes 7.7 % (1.7-9.3); % Neutrophils 60.9 % (42.2-75.2); Absolute Basophils 0.1 10^3/uL (0-0.2); Absolute Eosinophils 0.2 10^3/uL (0-0.7); Absolute Lymphocytes 2.8 10^3/uL (1.2-3.4); Absolute Monocytes 0.8 10^3/uL (0.1-0.6); Absolute Neutrophils 5.9 10^3/uL (1.4-6.5); Hematocrit 39.7 % (37.0-47.0); Hemoglobin 13.5 g/dL (12.0-16.0); Mean Corpuscular Hgb 32.8 pg (27.0-31.0); Mean Corpuscular Volume 96.6 fL (81.0-99.0); Mean Platelet Volume 11.5 fL (7.4-10.4); Nucleated Red Blood Cells % 0 %; Platelet Count 229 10^3/uL (130-400); Red Blood Cell Count 4.11 10^6/uL (4.20-5.40); Red Cell Dist. Width 13.1 % (11.5-14.5); White Blood Cell Count 9.8 10^3/uL (4.8-10.8)
[2023-11-01 04:32] LABS: ALT (SGPT) 62 U/L (0-35); AST (SGOT) 36 U/L (14-36); Albumin 3.6 g/dl (3.5-5.0); Alkaline Phosphatase 76 U/L (38-126); Blood Urea Nitrogen 18 mg/dl (7-17); Calcium 9.4 mg/dl (8.4-10.2); Carbon Dioxide 25 mmol/L (22-30); Chloride 109 mmol/L (98-107); Estimated Creatinine Clearance 102 ml/min; Glucose 93 mg/dl (70-99); Potassium 4.6 mmol/L (3.5-5.1); Sodium 139 mmol/L (135-145); Total Bilirubin 1.3 mg/dl (0.2-1.3); eGFR > 60.00
[2023-11-01 08:27] VITALS: BP 110/95
--- NOTE | 2023-11-01 08:49 | W.PN.CARDCBS ---
Addendum entered and electronically signed by Enrique Alexander MD 11/01/23 15:47:
I saw and examined the patient.
The Dry End Tester's note was reviewed and I agree with the note.
Comment: Briefly, 63-year-old woman past medical history of paroxysmal atrial fibrillation not on oral anticoagulation prior to this admission presenting with atrial fibrillation with rapid ventricular response and heart failure with preserved
ejection fraction
Attempted direct-current cardioversion yesterday was unsuccessful and she was started on oral amiodarone
Would continue oral metoprolol and amiodarone until , 11/03/2023 and attempt to repeat direct-current cardioversion
Continue oral anticoagulation
Has been transitioned to oral Lasix, would continue her current dosing
Eventual outpatient follow-up to discuss ablation
Original Note:
Today's Communication / Plan
-
Cont amiodarone load
CV in AM
Continuous nocturnal pulse ox tonight and she will still need a sleep study as an outpatient
Impression / Plan
-
PCP: Neelima Hernandez
Cardiology: Primary head of science in [place]
Impression:
Acute HFpEF
Afib with RVR on admission
Paroxysmal Afib since September 2022
Not on OAC due to low CHADS Vasc score and patient choice
Hypercholesterolemia
History of elevated blood pressure
History of migraines
Anxiety disorder
Mild to mod MR by FROY 10/31/23
FROY 10/31/23: EF 50%, mild to mod MR
Plan:
-Patient remains in Afib with faster ventricular rates, but she is less symptomatic. Patient had an unsuccessful FROY/CV 10/31/23, she briefly went into AIVR, but then back to Afib.
-Plan is for rhythm control and so amiodarone 400 mg TID added 10/31/23. Patient has received a 1.2 gram load as of 11/01/23 AM. Will attempt another CV on 11/02/23.
-Patient wore a Holter monitor 2022 and had Afib, atrial flutter and atrial tachycardia, but patient elected to make no changes in meds at that time. She also declined EP eval at that time, but is now agreeable and will follow up with Dr. Cox in
the office.
-Patient was not taking OAC prior to admission because her CHADS score was 'low' and that was her choice. Patient was not aware of Afib in the ER on admission and her main symptom was SOB. Patient was started on Eliquis 5 mg BID this admission. She
has commercial insurance and can use the Eliquis co-pay card.
-Patient needs an outpatient JOSE A eval. Will also add nocturnal pulse overnight 11/01/23
-Patient diuresed initially and weight is down 2-4 lbs from admission with Lasix 40 mg IV BID. Patient was not taking a diuretic prior to admission. Patient now ordered Lasix 20 mg PO daily.
Progress Note - Spanish Language Lecturer
Subjective
Date of Service: November 01, 2023
She feels well, no palpitations
Objective
Labs:
11/01/23 03:49
11/01/23 03:49
Labs
Hgb 13.5 g/dL (12.0-16.0) 11/01/23 03:49
Hct 39.7 % (37.0-47.0) 11/01/23 03:49
Plt Count 229 10^3/uL (130-400) 11/01/23 03:49
Sodium 139 mmol/L (135-145) 11/01/23 03:49
Potassium 4.6 mmol/L (3.5-5.1) 11/01/23 03:49
BUN 18 mg/dl (7-17) H 11/01/23 03:49
Creatinine 0.8 mg/dL (0.6-1.0) 11/01/23 03:49
Glucose 93 mg/dl (70-99) 11/01/23 03:49
Vital Signs and I&O:
Vital Signs
Temp Pulse Resp BP Pulse Ox
97.7 F 127 16 110/95 95
11/01/23 08:30 11/01/23 08:30 11/01/23 08:30 11/01/23 08:27 11/01/23 08:30
Vital Signs
Temp Pulse Resp BP Pulse Ox
97.7 F 127 16 110/95 95
11/01/23 08:30 11/01/23 08:30 11/01/23 08:30 11/01/23 08:27 11/01/23 08:30
Intake & Output
10/30/23 10/31/23 11/01/23 11/02/23
06:59 06:59 06:59 06:59
Intake Total 895 / 895 240 / 240
Output Total 3450 / 3450 900 / 900
Balance -2555 / -2555 -660 / -660
Physical Exam
Physical Exam
GEN: AAOx3
HEENT: mmm
LUNGS: No audible wheeze
CV: Afib on tele
ABD: ND
EXT: No edema
NEURO: Gross non-focal
SKIN: No rash
--- NOTE | 2023-11-01 09:18 | PTCARENOTE ---
Received patient this morning resting in bed, remains in AF with rates in the 120's. Denies any shortness of breath, palpitations or chest pain.
[2023-11-01] MEDS: ELIQUIS 5 MG PO ×2 (09:21→19:16)
[2023-11-01] MEDS: FLUSH (NSS) 1 FLUSH IV (09:21)
[2023-11-01] MEDS: LOPRESSOR 100 MG PO ×2 (09:21→19:16)
[2023-11-01] MEDS: PACERONE 400 MG PO ×3 (09:21→21:55)
[2023-11-01] MEDS: LASIX 20 MG PO (09:21)
[2023-11-01 11:44] VITALS: BP 101/81
--- NOTE | 2023-11-01 16:10 | W.PN.HOSP.TC ---
Today's Communication/Plan
-
Current plan is to continue oral metoprolol and amiodarone until , 11/03/2023, and then attempt to repeat direct-current cardioversion
Assessment / Plan
Assessment / Plan
Physical Exam
General: No Apparent Distress
HEENT: Normocephalic and Atraumatic
Respiratory: Clear to Auscultation Bilaterally
Cardiac: Irregular Rhythm
GI: Soft, Nontender and Nondistended. Positive bowel sounds.
Neuro: Awake, Oriented and AO x 3

63yo F with PMHx of migraine came witn c/o of chronic worsening of SOB over past year. Was diagnosed with A.fib, apparently known from before. Admitted for Afib with RVR planned for TTE with CV
A/P:
#Dyspnea 2/2 AFIb with RVR (unknown duration)
#CHF, unspecified, unclear if acute
#Idioventricular Escape Rhythm
Cardizem drip and switch to BB as tolerated
Echo from 10/31/23 noted
Telemetry
TSH WNL
Cardio consult: FROY with CV but patient had recurrence of A-Fib shortly after cardioversion
Amiodarone was started after unsuccessful cardioversion yesterday, and pursue repeat cardioversion on November 03, 2023
Patient ultimately is best suited for pulmonary vein isolation.
Chest x-ray without significant signs of CHF. Right basilar atelectasis confirmed on CT
VTE ruled out
Continue Eliquis
proBNP low with no signs of fluid overload on imaging - Lasix held
Will need outpatient sleep study
Follow-up with PCP with consideration for a GLP-1 agonist
#Mild indirect bilirubinemia
#Mild ALT elevation
no abd symptoms
follow LFT
LDH WNL
Outpatient follow up with PCP
Hepatitis profile
#HLD
low fat diet
consider statin, however would defer to PCP in view of minimal but LFT abnormalities
DVT ppx on Eliquis
Full code
Anticipated Discharge: > 48 hours
Subjective/Interval History
-
Date of Service: November 01, 2023
Patient was seen and examined. She denied any chest pain or any other complaints.
Objective Data
-
Labs:
Laboratory Results
11/01/23
03:49
WBC 9.8
Hgb 13.5
Hct 39.7
Plt Count 229
Sodium 139
Potassium 4.6
Chloride 109 H
Carbon Dioxide 25
BUN 18 H
Creatinine 0.8
Glucose 93
Calcium 9.4
Total Bilirubin 1.3
AST 36
ALT 62 H
Alkaline Phosphatase 76
Vital Signs:
Vital Signs
Temp Pulse Resp BP Pulse Ox
97.5 F 120 20 101/81 94
11/01/23 11:43 11/01/23 12:00 11/01/23 11:43 11/01/23 11:44 11/01/23 11:44
I&O
10/31/23 11/01/23 11/02/23
06:59 06:59 06:59
Intake Total 240 / 240 360 / 360
Output Total 900 / 900
Balance -660 / -660 360 / 360
[2023-11-01 16:37] VITALS: BP 114/57
[2023-11-01 18:55] VITALS: BP 113/86
[2023-11-01 21:54] VITALS: BP 125/91
--- NOTE | 2023-11-01 23:27 | PTCARENOTE ---
Received patient for the night in bed. Afib on the monitor. Patient reports no chest pain. Call corbin within reach.
[2023-11-02] VITALS (9 sets, daily range): BP systolic 98–126; BP diastolic 50–93; BMI 38.4
[2023-11-02] MEDS: PACERONE 400 MG PO ×3 (08:43→21:18)
[2023-11-02] MEDS: LASIX 20 MG PO (08:43)
[2023-11-02] MEDS: LOPRESSOR 100 MG PO ×2 (08:44→19:17)
[2023-11-02] MEDS: ELIQUIS 5 MG PO ×2 (08:45→19:17)
[2023-11-02] MEDS: FLUSH (NSS) 1 FLUSH IV (08:45)
--- NOTE | 2023-11-02 09:02 | W.PN.CARDCBS ---
Addendum entered and electronically signed by Enrique Alexander MD 11/02/23 13:10:
I saw and examined the patient.
The Flame Gouger's note was reviewed and I agree with the note.
Comment: Briefly, 63-year-old woman past medical history of paroxysmal atrial fibrillation presenting with atrial fibrillation with rapid ventricular response and acute decompensated heart failure with preserved ejection fraction
Direct-current cardioversion was attempted earlier this week however it was unsuccessful
Currently undergoing amiodarone load and will reattempt cardioversion tomorrow 11/03/2023
Continue metoprolol for rate control of A-fib, heart rate remains above goal of 110 bpm
Continue Xarelto for cardioembolic prophylaxis
Transitioned to oral Lasix, with discharge on 20 mg daily
Outpatient follow-up with electrophysiology to discuss eventual ablation
Original Note:
Today's Communication / Plan
-
Cont amiodarone load
CV in AM
Outpatient sleep study
Impression / Plan
-
PCP: Neelima Hernandez
Cardiology: Primary machinist wood in [place]
Impression:
Acute HFpEF
Afib with RVR on admission
Paroxysmal Afib since September 2022
Not on OAC due to low CHADS Vasc score and patient choice
Hypercholesterolemia
History of elevated blood pressure
History of migraines
Anxiety disorder
Mild to mod MR by FROY 10/31/23
FROY 10/31/23: EF 50%, mild to mod MR
Plan:
-Nocturnal pulse ox reviewed and patient had a cumulative total of about 4 minutes of pulse ox less than 89% overnight over five total events. Patient should pursue outpatient sleep study and might need CPAP pending results.
-Remains in Afib with HR in the 90s which is a bit better. She continues on Lopressor 100 mg BID which is new this admission. She is hypotensive at times.
-Patient had an unsuccessful FROY/CV 10/31/23, she briefly went into AIVR, but then back to Afib. Plan is for rhythm control and so amiodarone 400 mg TID added 10/31/23. Patient has received a 2.4 gram load as of 11/02/23 AM. Will attempt another CV on
11/03/23.
-Patient wore a Holter monitor 2022 and had Afib, atrial flutter and atrial tachycardia, but patient elected to make no changes in meds at that time. She also declined EP eval at that time, but is now agreeable and will follow up with Dr. Cox in
the office.
-Patient was not taking OAC prior to admission because her CHADS score was 'low' and that was her choice. Patient was not aware of Afib in the ER on admission and her main symptom was SOB. Patient was started on Eliquis 5 mg BID this admission. She
has commercial insurance and can use the Eliquis co-pay card.
-pro-BNP 513 on admission. Patient diuresed initially and weight is down 2-4 lbs from admission with Lasix 40 mg IV BID. Patient was not taking a diuretic prior to admission. Patient now ordered Lasix 20 mg PO daily.
Progress Note - Stave Block Splitter
Subjective
Date of Service: November 02, 2023
She feels fine, no palpitations
Objective
Labs:
11/01/23 03:49
11/01/23 03:49
Labs
Hgb 13.5 g/dL (12.0-16.0) 11/01/23 03:49
Hct 39.7 % (37.0-47.0) 11/01/23 03:49
Plt Count 229 10^3/uL (130-400) 11/01/23 03:49
Sodium 139 mmol/L (135-145) 11/01/23 03:49
Potassium 4.6 mmol/L (3.5-5.1) 11/01/23 03:49
BUN 18 mg/dl (7-17) H 11/01/23 03:49
Creatinine 0.8 mg/dL (0.6-1.0) 11/01/23 03:49
Glucose 93 mg/dl (70-99) 11/01/23 03:49
Vital Signs and I&O:
Vital Signs
Temp Pulse Resp BP Pulse Ox
97.4 F 90 16 123/89 97
11/02/23 07:30 11/02/23 08:44 11/02/23 07:30 11/02/23 08:44 11/02/23 07:30
Vital Signs
Temp Pulse Resp BP Pulse Ox
97.4 F 90 16 123/89 97
11/02/23 07:30 11/02/23 08:44 11/02/23 07:30 11/02/23 08:44 11/02/23 07:30
Intake & Output
10/31/23 11/01/23 11/02/23 11/03/23
06:59 06:59 06:59 06:59
Intake Total 240 / 240 600 / 600
Output Total 900 / 900
Balance -660 / -660 600 / 600
Physical Exam
Physical Exam
GEN: AAOx3
HEENT: mmm
LUNGS: No audible wheeze
CV: Afib on tele
ABD: ND
EXT: No edema
NEURO: Gross non-focal
SKIN: No rash
--- NOTE | 2023-11-02 12:04 | CM ---
CM following for DC planning needs.
Reviewed initial assessment. Pt. resides w/ spouse in a private, split level home. Functionally, patient is indep. at baseline w/ ADLs, mobility without the use of any assisted device.
Anticipated DC plan is for home, no needs.
Will cont. to follow.
--- NOTE | 2023-11-02 16:21 | W.PN.HOSP.TC ---
Today's Communication/Plan
-
Cardioversion tomorrow
Assessment / Plan
Assessment / Plan
Physical Exam
General: No Apparent Distress
HEENT: Normocephalic and Atraumatic
Respiratory: Clear to Auscultation Bilaterally
Cardiac: Irregular Rhythm
GI: Soft, Nontender and Nondistended. Positive bowel sounds.
Neuro: Awake, Oriented and AO x 3

63yo F with PMHx of migraine came witbhn c/o of chronic worsening of SOB over past year. Was diagnosed with A.fib, apparently known from before. Admitted for Afib with RVR planned for TTE with CV
A/P:
#Dyspnea 2/2 AFIb with RVR (unknown duration)
#CHF, unspecified, unclear if acute
#Idioventricular Escape Rhythm
Cardizem drip and switch to BB as tolerated
Echo from 10/31/23 noted
Telemetry
TSH WNL
Cardio consult: FROY with CV but patient had recurrence of A-Fib shortly after cardioversion
Amiodarone was started after unsuccessful cardioversion yesterday, and pursue repeat cardioversion tomorrow
Continue Metoprolol
Patient ultimately is best suited for pulmonary vein isolation.
Chest x-ray without significant signs of CHF. Right basilar atelectasis confirmed on CT
VTE ruled out
Continue Eliquis
Continue PO Lasix
proBNP low with no signs of fluid overload on imaging - Lasix held
Will need outpatient sleep study
Follow-up with PCP with consideration for a GLP-1 agonist
Outpatient follow-up with electrophysiology to discuss eventual ablation
#Mild indirect bilirubinemia
#Mild ALT elevation
no abd symptoms
follow LFT
LDH WNL
Outpatient follow up with PCP
Hepatitis profile
#HLD
low fat diet
consider statin, however would defer to PCP in view of minimal but LFT abnormalities
DVT ppx on Eliquis
Full code
Anticipated Discharge: 24 - 48 hours
Subjective/Interval History
-
Date of Service: November 02, 2023
Patient was seen and examined. She denied any chest pain, palpitations or any other new symptoms or complaints.
Objective Data
-
Vital Signs:
Vital Signs
Temp Pulse Resp BP Pulse Ox
97.6 F 106 18 99/60 97
11/02/23 12:00 11/02/23 15:41 11/02/23 12:00 11/02/23 15:41 11/02/23 12:00
I&O
11/01/23 11/02/23 11/03/23
06:59 06:59 06:59
Intake Total 600 / 600
Balance 600 / 600
--- NOTE | 2023-11-02 18:20 | PTCARENOTE ---
patient remains in Afib, VSS. patient will be NPO after MN for CV in am.
--- NOTE | 2023-11-02 21:03 | PTCARENOTE ---
Pt. recevied at change of shift. Pt. seen and assessed in room. Pt. AOx3. Tele reading Afib in the 90s-110s. BP stable. No complaints of pain at this time. Continuing to monitor the pt.
[2023-11-03 04:07] VITALS: BP 114/79
[2023-11-03 06:00] VITALS: BMI 38.3
[2023-11-03 06:10] LABS: ALT (SGPT) 49 U/L (0-35); AST (SGOT) 25 U/L (14-36); Albumin 3.9 g/dl (3.5-5.0); Alkaline Phosphatase 79 U/L (38-126); Blood Urea Nitrogen 19 mg/dl (7-17); Calcium 9.6 mg/dl (8.4-10.2); Carbon Dioxide 22 mmol/L (22-30); Chloride 108 mmol/L (98-107); Estimated Creatinine Clearance 90 ml/min; Glucose 85 mg/dl (70-99); Potassium 4.6 mmol/L (3.5-5.1); Sodium 139 mmol/L (135-145); Total Protein 6.3 g/dl (6.3-8.2); eGFR > 60.00
[2023-11-03 07:06] VITALS: BP 102/83
[2023-11-03] MEDS: PACERONE 400 MG PO (08:00)
[2023-11-03] MEDS: LOPRESSOR 100 MG PO (08:00)
[2023-11-03] MEDS: ELIQUIS 5 MG PO (08:00)
--- NOTE | 2023-11-03 09:35 | ITS.CL.CARDI ---
Care Consultant - Cardioversion
Cardioversion
Procedure Report:
Date of Procedure:
Procedure: Cardioversion
Indication: Symptomatic atrial fibrillation
Performing Physician: Ld Espinoza MD
Technique: The patient was brought to the holding area. Signed informed consent was obtained. A time out was called and performed. The patient was anesthetized by the anesthesia service. Anticoagulation status was reviewed and appropriate. R2 pads
were placed anteriorly and posteriorly. A 200 J synchronized biphasic shock failed, but a 360J shock restored sinus rhythm. There were no complications.
Conclusion: Uncomplicated cardioversion from atrial fibrillation to sinus rhythm.
Recommendation: Routine post cardioversion care. Continue [facility] anticoagulation.
[2023-11-03 10:43] VITALS: BP 97/62
[2023-11-03] MEDS: LASIX 20 MG PO (10:49)
--- NOTE | 2023-11-03 10:52 | W.PN.CARDCBS ---
Today's Communication / Plan
-
Change Lopressor to Toprol XL 25 mg daily
Cont amiodarone 200 mg BID for 2 weeks and then once daily thereafter
Cont Eliquis 5 mg BID
Impression / Plan
-
PCP: Neelima Hernandez
Cardiology: Primary refrigeration supervisor Dr. Potetr in [place] [phone]
Impression:
Acute HFpEF
Afib with RVR on admission
s/p unsuccessful FROY/CV 10/31/23
amiodarone loading started 10/31/23
s/p successful CV 11/03/23
Paroxysmal Afib since September 2022
Not on OAC due to low CHADS Vasc score and patient choice
Hypercholesterolemia
History of elevated blood pressure
History of migraines
Anxiety disorder
Mild to mod MR by FROY 10/31/23
FROY 10/31/23: EF 50%, mild to mod MR
Plan:
-Patient with a h/o pAfib, but an overall low burden as described on monitor report from her primary refrigeration supervisor in [place]. Patient had been offered EP eval by her primary refrigeration supervisor, but she declined. She was not on OAC due to her choice because of
the low burden and low CHADS score. Came to [facility] 10/28/23 and was in Afib with RVR and acute HF.
-Patient had an unsuccessful FROY/CV 10/31/23, she briefly went into AIVR, but then back to Afib. Amiodarone 400 mg TID added 10/31/23. Patient has received a 3.6 gram load as of 11/03/23 AM. CV was successful on 11/03/23.
-Lopressor 100 mg BID added on admission, but will transition to Toprol XL 25 mg daily.
-Nocturnal pulse ox reviewed and patient had a cumulative total of about 4 minutes of pulse ox less than 89% overnight over five total events. Patient should pursue outpatient sleep study and might need CPAP pending results.
-Patient was not taking OAC prior to admission because her CHADS score was 'low' and that was her choice. Patient was not aware of Afib in the ER on admission and her main symptom was SOB. Patient was started on Eliquis 5 mg BID this admission. She
has commercial insurance and can use the Eliquis co-pay card.
-pro-BNP 513 on admission. Patient diuresed initially and weight is down 2-4 lbs from admission with Lasix 40 mg IV BID. Patient was not taking a diuretic prior to admission. Patient now ordered Lasix 20 mg PO daily.
-Patient is planning to follow up with EP at [facility] based upon recommendation of a local friend who is a retired physician.
-Called patient's PCP to arrange for a 1 week HF f/u because patient is going to f/u with an as yet unnamed [facility] refrigeration supervisor and will need a 1 week HF appt in the interim. PCP's office will call patient with appt.
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
Subjective
Date of Service: November 03, 2023
No chest pain
Objective
Labs:
11/01/23 03:49
11/03/23 04:20
Labs
Hgb 13.5 g/dL (12.0-16.0) 11/01/23 03:49
Hct 39.7 % (37.0-47.0) 11/01/23 03:49
Plt Count 229 10^3/uL (130-400) 11/01/23 03:49
Sodium 139 mmol/L (135-145) 11/03/23 04:20
Potassium 4.6 mmol/L (3.5-5.1) 11/03/23 04:20
BUN 19 mg/dl (7-17) H 11/03/23 04:20
Creatinine 0.9 mg/dL (0.6-1.0) 11/03/23 04:20
Glucose 85 mg/dl (70-99) 11/03/23 04:20
Vital Signs and I&O:
Vital Signs
Temp Pulse Resp BP Pulse Ox
97.7 F 101 20 114/79 95
11/03/23 07:03 11/03/23 05:00 11/03/23 07:03 11/03/23 04:07 11/03/23 07:03
Vital Signs
Temp Pulse Resp BP Pulse Ox
97.7 F 101 20 114/79 95
11/03/23 07:03 11/03/23 05:00 11/03/23 07:03 11/03/23 04:07 11/03/23 07:03
Intake & Output
11/01/23 11/02/23 11/03/23 11/04/23
06:59 06:59 06:59 06:59
Intake Total 600 / 600 100 / 100
Balance 600 / 600 100 / 100
Physical Exam
Physical Exam
GEN: AAOx3
HEENT: mmm
LUNGS: No audible wheeze
CV: SR on tele
ABD: ND
EXT: No edema
NEURO: Gross non-focal
SKIN: No rash
[2023-11-03 11:34] VITALS: BP 106/62
[2023-11-03 12:00] VITALS: BP 110/71
--- NOTE | 2023-11-03 13:22 | W.PN.HOSP.TC ---
Today's Communication/Plan
-
Discharge today
Assessment / Plan
Assessment / Plan
Physical Exam
General: No Apparent Distress
HEENT: Normocephalic and Atraumatic
Respiratory: Clear to Auscultation Bilaterally
Cardiac: Irregular Rhythm
GI: Soft, Nontender and Nondistended. Positive bowel sounds.
Neuro: Awake, Oriented and Oriented x3

63yo F with PMHx of migraine came witbhn c/o of chronic worsening of SOB over past year. Was diagnosed with A.fib, apparently known from before. Admitted for Afib with RVR planned for TTE with CV
A/P:
#Dyspnea 2/2 AFIb with RVR (unknown duration)
#CHF, unspecified, unclear if acute
#Idioventricular Escape Rhythm
Cardizem drip and switch to BB as tolerated
Echo from 10/31/23 noted
Telemetry
TSH WNL
Cardio consult: FROY with CV but patient had recurrence of A-Fib shortly after cardioversion
Amiodarone was started after unsuccessful cardioversion initially, now status post uncomplicated cardioversion on 11/03/23 from atrial fibrillation to sinus rhythm.
Continue amiodarone 200 mg BID for 2 weeks and then once daily thereafter
Continue Toprol XL 25 mg daily
Patient ultimately is best suited for pulmonary vein isolation.
Chest x-ray without significant signs of CHF. Right basilar atelectasis confirmed on CT
VTE ruled out
Continue Eliquis 5 mg BID
Continue PO Lasix
proBNP low with no signs of fluid overload on imaging - Lasix held
Will need outpatient sleep study
Follow-up with PCP with consideration for a GLP-1 agonist
Outpatient follow-up with electrophysiology to discuss eventual ablation
#Mild indirect bilirubinemia
#Mild ALT elevation
no abd symptoms
follow LFT
LDH WNL
Outpatient follow up with PCP
Hepatitis profile
#HLD
low fat diet
consider statin, however would defer to PCP in view of minimal but LFT abnormalities
DVT ppx on Eliquis
Full code
More than 30 minutes spent in discharge including
Final examination of the patient
Summarizing hospital stay
Instructions for continuing care to all relevant caregivers
Preparation of discharge records, prescriptions, and referral forms
Total time spent (in minutes): 40
Anticipated Discharge: Today
Subjective/Interval History
-
Date of Service: November 03, 2023
Patient was seen and examined after her cardioversion this morning. She reported no chest pain or shortness of breath.
Objective Data
-
Labs:
Laboratory Results
11/03/23
04:20
Sodium 139
Potassium 4.6
Chloride 108 H
Carbon Dioxide 22
BUN 19 H
Creatinine 0.9
Glucose 85
Calcium 9.6
Total Bilirubin 1.0
AST 25
ALT 49 H
Alkaline Phosphatase 79
Vital Signs:
Vital Signs
Temp Pulse Resp BP Pulse Ox
97 F 101 20 114/79 97
11/03/23 11:55 11/03/23 05:00 11/03/23 11:55 11/03/23 04:07 11/03/23 11:55
I&O
11/02/23 11/03/23 11/04/23
06:59 06:59 06:59
Intake Total 600 / 600 100 / 100
Balance 600 / 600 100 / 100
--- NOTE | 2023-11-03 13:28 | PTCARENOTE ---
Addendum entered by Maria Luz Enrique RN 11/03/23 14:29:
Pt asymptomatic with low HR
Original Note:
Pt's HR SB 40's post CV, Neeta Napoles already aware, med adjustments made.
--- NOTE | 2023-11-03 15:11 | W.DS.TRANS ---
DC Summary - Out Of Town Collection Clerk
-
Discharge Instructions:
Sleep Apnea Risk Intermediate
Discharge Diagnosis/Procedures Paroxysmal atrial fibrillation, transesophageal
echo and cardioversion 10/31/23, successful
cardioversion 11/03/23
Acute HFpEF
Afib with RVR on admission
Hyperlipidemia
Mild indirect bilirubinemia
Mild ALT elevation
Diet 2 Gram Sodium,Low Fat,Low Cholesterol
Activity As tolerated
Driving Restrictions No driving for 24 hours
Bathing Restrictions None
Blood Work Non-fasting blood work in 1 week
Specialty Instructions Weigh Daily
Instructions:
Stand-Alone Forms:
Changes to Home Medications: Yes
Discharge Medications:
DC Medications w/original date entered in [facility]
alprazolam 0.25 mg PO PRN Anxiety 10/28/23
calcium carbonate 500 mg PO DAILY Supplement 10/28/23
coQ10 (ubiquinol) 100 mg capsule 100 mg PO DAILY Supplement 10/28/23
ibuprofen 200 mg tablet (Advil) 200 mg PO Q6HPRN PRN MILD PAIN 10/28/23
phytosterol 300 mg-pantethine 100 mg capsule (CholestOff Complete) 1 cap PO DAILY Supplement 10/28/23
therapeutic multivitamin 1 tab PO DAILY Supplement 10/28/23
zolmitriptan 5 mg tablet (Zomig) 0 mg PO .COMPLEX HEADACHES 10/28/23
amiodarone 200 mg tablet 200 mg PO BID Arrhythmia #28 tabs 11/03/23
amiodarone 200 mg tablet 200 mg PO DAILY Arrhythmia #30 tabs 11/03/23
apixaban 5 mg tablet (Eliquis) 5 mg PO BID Blood clot prevention/tx #60 tabs 11/03/23
furosemide 20 mg tablet 20 mg PO DAILY Heart Failure #30 tabs 11/03/23
metoprolol succinate 25 mg tablet,extended release 24 hr (Toprol XL) 25 mg PO DAILY Arrhythmia #30 tabs 11/03/23
Home Medication Changes
-START taking Toprol XL (metoprolol succinate) 25 mg once a day
-START taking Eliquis 5 mg twice a day
-START taking amiodarone 200 mg twice a day for two weeks then reduce to 200 mg once a day thereafter. Follow up with your primary operations assistant about long-term management of your Afib.
-STOP taking aspirin
-START taking Lasix (furosemide) 20 mg once a day
Pending Results: No
Total time spent discharging patient (in min): 40
== END 2023-11-03 15:45 | disposition home or self-care (01) | DRG 308 ==
LOC: IVU 20:51
PROVIDERS: Emergency Medicine; Internal Medicine; Internal Medicine Cardiovascular Disease; ADMITTING PHYSICIAN Hospitalist; ATTENDING PHYSICIAN Hospitalist; CONSULT PHYSICIAN Internal Medicine Cardiovascular Disease; EMERGENCY PHYSICIAN Student in an Organized Health Care Education/Training Program; FAMILY PHYSICIAN Nurse Practitioner
PROC: 5A2204Z Restoration of Cardiac Rhythm, Single (ICD-10-PCS; 2023-10-31)
DX: I48.0 Paroxysmal atrial fibrillation (principal); I50.31 Acute diastolic (congestive) heart failure; J98.11 Atelectasis; E66.09 Other obesity due to excess calories; I34.0 Nonrheumatic mitral (valve) insufficiency; Z68.38 Body mass index [BMI] 38.0-38.9, adult; I49.8 Other specified cardiac arrhythmias; E78.00 Pure hypercholesterolemia, unspecified; F41.9 Anxiety disorder, unspecified; R79.89 Other specified abnormal findings of blood chemistry; R06.83 Snoring; Z79.82 Long term (current) use of aspirin; Z79.899 Other long term (current) drug therapy; Z82.49 Family history of ischemic heart disease and other diseases of the circulatory system
CPT/HCPCS: 71046; 71275; 80048; 80053; 80061; 82248; 83615; 83735; 83880; 84443; 84484; 85025; 85027; 86704; 86706; 86803; 87340; 87811; 92960; 93005; 93312; 93320; 93325; 93970; 94762; 96361; 96365; 96366; 96376; 99291; Q9967

== ENCOUNTER → 2024-01-24 12:26 | Outpatient (REF) | payer OTHER, SELFPAY | LOC: DHSLP 12:26 | PROVIDERS: ATTENDING PHYSICIAN Internal Medicine Critical Care Medicine; FAMILY PHYSICIAN Nurse Practitioner | DX: G47.33 Obstructive sleep apnea (adult) (pediatric) (principal) | CPT/HCPCS: 95800 ==